=== PATIENT | female | born 1995 | race African-American/Black ===

== ENCOUNTER 2017-05-01 15:34 | Emergency (ER) | payer OTHER ==
[~2017-05-01] VITALS: Ht 170.2 cm; Wt 95.2 kg
[2017-05-01 17:12] LABS: ADD MIUA? YES; BILIRUBIN NEGATIVE; BLOOD MODERATE; COLOR YELLOW ((YELLOW)); GLUCOSE (STRIP) NEGATIVE; KETONES NEGATIVE; LEUKOCYTES NEGATIVE; NITRITE NEGATIVE; PROTEIN (STRIP) NEGATIVE; SPECIFIC GRAVITY 1.025 (1.000-1.030)
[2017-05-01 17:28] LABS: BACTERIA NONE SEEN /HPF; EPITHELIAL CELLS RARE /HPF; MUCUS TRACE /LPF; RED BLOOD CELLS 0-5 /HPF (0-5); WHITE BLOOD CELLS 0-5 /HPF (0-5)
[2017-05-01 18:02] LABS: CHLORIDE 112 mEq/L (99-109); POTASSIUM 4.4 mEq/L (3.7-5.4); SODIUM 140 mEq/L (136-147)
[2017-05-01 18:04] LABS: GLUCOSE 83 mg/dL (70-99)
[2017-05-01 18:05] LABS: HEMATOCRIT 42.3 % (36.0-46.0); MCH 27.6 PG (29.0-34.0); MCHC 32.2 G/DL (30.0-36.0); MCV 85.8 FL (83-99); MEAN PLAT.VOLUME 11.5 uM^3 (9.5-12.4); PLATELET COUNT 215 K/uL (156-360); RBC DIS.WIDTH-CV 13.8 % (11.8-14.6); RED BLOOD COUNT 4.93 M/uL (3.80-5.20); WHITE BLOOD COUNT 6.5 K/uL (4.1-10.2)
[2017-05-01 18:06] LABS: ANION GAP 13 MEQ/L (2-14)
[2017-05-01 18:08] LABS: GFR ESTIMATE (CALCULATED) > 59 mL/min/
[2017-05-01 18:09] LABS: UREA NITROGEN (BUN) 7 mg/dL (9-23)
[2017-05-01 18:18] LABS: QUANTITATIVE HCG < 4.0 MIU/ML
[2017-05-01 18:53] LABS: CREATINE KINASE 133 IU/L (1-294)
[2017-05-01] MEDS ORDERED: ZOFRAN ODT4 MG PO (20:00)
[2017-05-01] MEDS ORDERED: INDOCIN25 MG PO (20:00)
[2017-05-01] MEDS ORDERED: ANTIVERT25 MG PO (20:00)
[2017-05-01 20:38] VITALS: BP 112/63
== END 2017-05-01 20:39 | disposition home or self-care (01) ==
LOC: EME 15:34
PROVIDERS: Physician Assistant
DX: N92.1 Excessive and frequent menstruation with irregular cycle (principal); N94.6 Dysmenorrhea, unspecified; E86.0 Dehydration; R11.2 Nausea with vomiting, unspecified; F17.200 Nicotine dependence, unspecified, uncomplicated
CPT/HCPCS: 80048; 81003; 82550; 84702; 85027; 99281; 99284; J1885; J7030

== ENCOUNTER 2017-05-23 18:43 | Emergency (ER) | payer OTHER ==
[~2017-05-23] VITALS: Ht 170.2 cm; Wt 99.8 kg
[~2017-05-23 18:43] MED LIST: ANTIVERT25 MG PO; INDOCIN25 MG PO; ZOFRAN ODT4 MG PO
[2017-05-23 19:32] LABS: MCH 28.1 PG (29.0-34.0); MCHC 32.1 G/DL (30.0-36.0); MCV 87.6 FL (83-99); MEAN PLAT.VOLUME 11.1 uM^3 (9.5-12.4); PLATELET COUNT 250 K/uL (156-360); RBC DIS.WIDTH-CV 13.2 % (11.8-14.6); RBC DIS.WIDTH-SD 42.5 % (39-53); RED BLOOD COUNT 4.91 M/uL (3.80-5.20); WHITE BLOOD COUNT 7.3 K/uL (4.1-10.2)
[2017-05-23 19:50] LABS: CHLORIDE 110 mEq/L (99-109); SODIUM 140 mEq/L (136-147)
[2017-05-23 19:52] LABS: GLUCOSE 90 mg/dL (70-99)
[2017-05-23 19:53] LABS: ANION GAP 8 MEQ/L (2-14)
[2017-05-23 19:54] LABS: TOTAL BILIRUBIN 0.3 mg/dL (0.0-1.0)
[2017-05-23 19:56] LABS: ALKALINE PHOSPHATASE 73 IU/L (3-129); GFR ESTIMATE (CALCULATED) 56 mL/min/
[2017-05-23 19:57] LABS: UREA NITROGEN (BUN) 9 mg/dL (9-23)
[2017-05-23 20:06] LABS: QUANTITATIVE HCG < 4.0 MIU/ML
[2017-05-23 20:46] LABS: LIPASE 71 U/L (1.0-51.0)
[2017-05-23] MEDS ORDERED: SAVELLA25 MG PO (20:46)
[2017-05-23] MEDS ORDERED: SEROQUEL12.5 MG PO (20:46)
[2017-05-23 20:47] LABS: ADD MIUA? YES; BILIRUBIN NEGATIVE; BLOOD SMALL; COLOR STRAW ((YELLOW)); GLUCOSE (STRIP) NEGATIVE; KETONES NEGATIVE; LEUKOCYTES NEGATIVE; NITRITE NEGATIVE; PROTEIN (STRIP) NEGATIVE; UROBILINOGEN 0.2 MG/DL (0.2-1.0)
[2017-05-23 20:52] LABS: BACTERIA NONE SEEN /HPF; EPITHELIAL CELLS 1+ /HPF; MUCUS NONE SEEN /LPF; RED BLOOD CELLS 0-5 /HPF (0-5); UCUL ADDED? NO; WHITE BLOOD CELLS 0-5 /HPF (0-5)
[2017-05-23] MEDS ORDERED: ZOFRAN ODT4 MG PO (22:26)
[2017-05-23] MEDS ORDERED: ZANTAC150 MG PO (22:29)
[2017-05-23 23:38] VITALS: BP 117/76
== END 2017-05-23 23:39 | disposition home or self-care (01) ==
LOC: EME 18:43
DX: R10.10 Upper abdominal pain, unspecified (principal); R55 Syncope and collapse; R11.2 Nausea with vomiting, unspecified; R42 Dizziness and giddiness; Z72.0 Tobacco use
CPT/HCPCS: 76705; 80053; 81003; 83690; 84702; 85027; 93005; 99281; 99283